=== PATIENT | male | born 1945 | race Caucasian/White ===

== ENCOUNTER 2020-03-19 08:29 | Observation (INO) | payer MEDICARE, MEDICAID ==
[~2020-03-19] VITALS: Ht 175.3 cm; Wt 53.7 kg
--- NOTE | 2020-03-19 08:41 | NUR ---
ORANGE JUICE GIVEN
--- NOTE | 2020-03-19 08:50 | ED Neurological Problem ---
General Chief Complaint: Neurological Problems Stated Complaint: POSSIBLE STROKE, FALL Nursing Triage Note: 0825 TO ED PER EMS FROM [facility] STAFF REPORTS THINKS HE MAY OF HAD A STROKE. HAVING SLURRED SPEECH AND REPORT WAS FOUND ON FLOOR LAST NIGHT WITH HIS W/C ON TOP OF HIM. ON EMS ARRIVAL FIND TO HAVE LOW BS STARTED IV AND D5 INFUSED. PATIENT ALERT AND TAKLING ON ARRIVAL TO ED WAS COVID POS ON FEB 17. PATIENT IS OLD CVA Nursing Sepsis Screen: No Definite Risk Source: patient, RN/MD, EMS, senior living records Exam Limitations: no limitations History of Present Illness Date Seen by Provider: Mar 19, 2020 Time Seen by Provider: 08:19 Initial Comments Patient presents ER by EMS from [facility] with chief complaint of altered mental status. Staff suspects that he had a stroke. He has had 2 falls in the last week. Last night he was found with his wheelchair on top of him and they picked him up and put him in bed. Patient was difficult to arouse this morning and had very slow slurred speech. He has a history of strokes. Is not on blood thinners. EMS states that his blood sugar was 22 when they arrived and they started a bag of D10 500 mL and he began to recover. Mother time he arrives he gives a history that he is not having any pain anywhere except for chronic pain in his knees. No cough fever shortness of air. He did have Covid diagnosed February 17 but he is long since symptom-free. 46-year pack history of smoking but not currently. He denies nausea chest pain diarrhea or constipation. EMS remarks he has been on oxygen since his diagnosis of Covid however his oxygen saturation was 98% on room air when they arrived. He does not chronically have a need for oxygen prior to that. Allergies and Home Medications Allergies Coded Allergies: NKANo Known Allergies (Verified Allergy, Unknown, 03/19/20) Home Medications Acetaminophen 325 Mg Capsule, 650 MG PO Q6H, (Reported) Ascorbic Acid 500 Mg Tablet, 500 MG PO DAILY, (Reported) Cholecalciferol (Vitamin D3) 1,250 Mcg Capsule, 5,000 UNITS PO DAILY, (Reported) Famotidine 20 Mg Tablet, 20 MG PO BID, (Reported) Finasteride 5 Mg Tablet, 5 MG PO DAILY, (Reported) Glimepiride 2 Mg Tablet, 2 MG PO DAILY, (Reported) Lisinopril 2.5 Mg Tablet, 2.5 MG PO DAILY, (Reported) Metformin HCl 500 Mg Tablet, 500 MG PO BID, (Reported) Potassium Chloride 10 Meq Tablet.er, 10 MEQ PO BID, (Reported) Simvastatin 20 Mg Tablet, 20 MG PO HS, (Reported) Terazosin HCl 2 Mg Capsule, 2 MG PO HS, (Reported) Zinc Amino Acid Chelate 50 Mg Tablet, 50 MG PO DAILY, (Reported) Patient Home Medication List Home Medication List Reviewed: Yes Review of Systems Review of Systems Constitutional: No chills, No diaphoresis Eyes: Denies Blindness, Denies Blurred Vision Ears, Nose, Mouth, Throat: denies ear pain, denies ear discharge Respiratory: No cough, No short of breath Cardiovascular: No chest pain, No palpitations Gastrointestinal: No abdominal pain, No constipation, No diarrhea Genitourinary: No discharge, No dysuria Musculoskeletal: see HPI; No back pain; joint pain All Other Systems Reviewed Negative Unless Noted: Yes Past Bmkugco-Ugrgqb-Ogxmbr Hx Patient Social History Alcohol Use: Denies Use Recreational Drug Use: No Smoking Status: Never a Smoker Recent Foreign Travel: No Contact w/Someone Who Travel: No Recent Infectious Disease Expo: No Recent Hopitalizations: No Past Medical History Surgeries: No Respiratory: No Cardiac: Yes Neurological: No Reproductive Disorders: No Gastrointestinal: No Musculoskeletal: Yes (wheelchair bound, uses walker for transfers) Endocrine: No Psychosocial: No Blood Disorders: No Physical Exam Vital Signs Vital Signs - First Documented 03/19/20 03/19/20 08:29 08:59 Pulse 93 Resp 18 B/P (MAP) 89/63 (72) Pulse Ox 94 O2 Delivery Room Air O2 Flow Rate 2.00 Capillary Refill : Less Than 3 Seconds Height, Weight, BMI Height: '" Weight: lbs. oz. kg; 23.00 BMI Method: General Appearance: no apparent distress, thin HEENT: PERRL/EOMI; No pharynx normal (Dry oral mucosa) Neck: full range of motion, supple, normal inspection Respiratory: lungs clear, no respiratory distress, no accessory muscle use (96% on room air nonlabored breathing), decreased breath sounds Gastrointestinal: normal bowel sounds, non tender Neurologic/Psychiatric: alert, normal mood/affect, oriented x 3 Crainal Nerves: normal hearing, normal speech, PERRL Motor/Sensory: no motor deficit, no sensory deficit Progress/Results/Core Measures Results/Orders Lab Results Laboratory Tests Test 03/19/20 08:15 03/19/20 08:40 03/19/20 08:42 03/19/20 10:43 Range/Units Urine Color YELLOW Urine Clarity CLEAR Urine pH 5.5 5-9 Urine Specific Godfrey >=1.030 1.016-1.022 Urine Protein TRACE H NEGATIVE Urine Glucose (UA) NEGATIVE NEGATIVE Urine Ketones 1+ H NEGATIVE Urine Nitrite NEGATIVE NEGATIVE Urine Bilirubin 1+ H NEGATIVE Urine Urobilinogen 1.0 < = 1.0 MG/DL Urine Leukocyte Esterase NEGATIVE NEGATIVE Urine RBC (Auto) NEGATIVE NEGATIVE Urine RBC NONE /HPF Urine WBC NONE /HPF Urine Crystals NONE /LPF Urine Bacteria NEGATIVE /HPF Urine Casts PRESENT /LPF Urine Hyaline Casts 2-5 H /LPF Urine Mucus NEGATIVE /LPF Urine Culture Indicated NO White Blood Count 13.9 H 4.3-11.0 10^3/uL Red Blood Count 5.32 4.30-5.52 10^6/uL Hemoglobin 14.9 13.3-17.7 g/dL Hematocrit 45 40-54 % Mean Corpuscular Volume 85 80-99 fL Mean Corpuscular Hemoglobin 28 25-34 pg Mean Corpuscular Hemoglobin Concent 33 32-36 g/dL Red Cell Distribution Width 15.9 H 10.0-14.5 % Platelet Count 414 H 130-400 10^3/uL Mean Platelet Volume 9.3 9.0-12.2 fL Immature Granulocyte % (Auto) 1 % Neutrophils (%) (Auto) 84 H 42-75 % Lymphocytes (%) (Auto) 8 L 12-44 % Monocytes (%) (Auto) 7 0-12 % Eosinophils (%) (Auto) 0 0-10 % Basophils (%) (Auto) 0 0-10 % Neutrophils # (Auto) 11.6 H 1.8-7.8 10^3/uL Lymphocytes # (Auto) 1.1 1.0-4.0 10^3/uL Monocytes # (Auto) 1.0 0.0-1.0 10^3/uL Eosinophils # (Auto) 0.0 0.0-0.3 10^3/uL Basophils # (Auto) 0.0 0.0-0.1 10^3/uL Immature Granulocyte # (Auto) 0.2 H 0.0-0.1 10^3/uL Sodium Level 130 L 135-145 MMOL/L Potassium Level 3.9 3.6-5.0 MMOL/L Chloride Level 94 L 98-107 MMOL/L Carbon Dioxide Level 20 L 21-32 MMOL/L Anion Gap 16 H 5-14 MMOL/L Blood Urea Nitrogen 34 H 7-18 MG/DL Creatinine 1.01 0.60-1.30 MG/DL Estimat Glomerular Filtration Rate > 60 BUN/Creatinine Ratio 34 Glucose Level 116 H 70-105 MG/DL Calcium Level 8.8 8.5-10.1 MG/DL Corrected Calcium 9.1 8.5-10.1 MG/DL Total Bilirubin 0.7 0.1-1.0 MG/DL Aspartate Amino Transf (AST/SGOT) 20 5-34 U/L Alanine Aminotransferase (ALT/SGPT) 20 0-55 U/L Alkaline Phosphatase 68 40-136 U/L Troponin I < 0.028 <0.028 NG/ML C-Reactive Protein High Sensitivity 2.78 H 0.00-0.50 MG/DL Total Protein 7.1 6.4-8.2 GM/DL Albumin 3.6 3.2-4.5 GM/DL Procalcitonin 0.17 H <0.10 NG/ML Glucometer 104 64 L 70-110 MG/DL My Orders Orders - JANEEN WEISS Ua Culture If Indicated (03/19/20 08:41) Cbc With Automated Diff (03/19/20 08:41) Comprehensive Metabolic Panel (03/19/20 08:41) Hs C Reactive Protein (03/19/20 08:41) Ct Head/Cervical Spine Wo (03/19/20 08:41) Chest 1 View, Ap/Pa Only (03/19/20 08:41) Straight Cath For Spec.-Adult (03/19/20 08:41) Accucheck Stat ONCE (03/19/20 08:41) Ekg Tracing (03/19/20 08:52) Troponin I (03/19/20 08:52) Accucheck Stat ONCE (03/19/20 09:28) D5 Ns 1000 Ml Iv Solution (Dextrose 5%/0 (03/19/20 10:45) Procalcitonin (Pct) (03/19/20 10:49) Vital Signs/I&O 03/19/20 03/19/20 03/19/20 08:29 08:59 09:52 Pulse 93 104 65 Resp 18 18 18 B/P (MAP) 89/63 (72) 118/84 (95) 128/88 (101) Pulse Ox 94 99 96 O2 Delivery Room Air Nasal Cannula Nasal Cannula O2 Flow Rate 2.00 2.00 Blood Pressure Mean: 72 Progress Progress Note #1: Time: 08:51 Progress Note Most of the 500 bag of D10 is in. His blood sugar is 104. Were going to feed him and evaluate blood urine and a chest x-ray. We will get a CT of his head and C-spine since he had a fall last night. Looking for source of his hypogly cemia. He is not having any chest pain however heart attacks can cause hypoglycemia so we will get an EKG and single troponin. Progress Note #2: Time: 10:42 Progress Note The patient's had no fever cough increased oxygen demand or evidence of pneumonia. He is recently getting over COVID-19 which is felt to be most likely for his x-ray findings. Plan to just observe this. He is feeling much better. Has been offered something to drink and were going to give him a small bolus of fluids. He did not want anything to eat. He had a small bowel movement and has a stage I pressure ulcer on his sacrum which was dressed with a padded dressing. He is bright, alert, cooperative and at baseline per staff. Initial ECG Impression Date: Mar 19, 2020 Initial ECG Impression Time: 09:09 Initial ECG Rate: 96 Initial ECG Rhythm: Normal Sinus Initial ECG Intervals: Normal Initial ECG Impression: Normal Initial ECG Comparisson: No Previous ECG Available Comment Normal sinus rhythm with quite a bit of tremor artifact and no clinically relevant ST changes. Diagnostic Imaging Diagonstic Imaging: Xray Plain Films/CT/US/NM/MRI: chest [facility] [place] [place] NAME: DANIELLE DESAI [facility] REC#: [id number] PT STATUS: REG ER : 1945 PHYSICIAN: JANEEN WEISS MD ADMIT DATE: 03/19/20/ER Draft Date of Exam:03/19/20 CHEST 1 VIEW, AP/PA ONLY Indication: Altered mental status with dyspnea. Comparison: None. Discussion: Single portable upright view of the chest was obtained. Normal heart size. Diffuse infiltrates are present bilaterally, greatest within the left lung base, concerning for pneumonia. No pleural fluid or pneumothorax. No osseous abnormality. Impression: 1. Extensive pulmonary infiltrates, greatest within the left lung base, concerning for pneumonia. Dictated on workstation # [id number] Dict: 03/19/20916 Trans: 03/19/[address] [facility] [id number] Interpreted by: CASSIDY FITZPATRICK MD Electronically signed by: Reviewed: Reviewed by Me Diagonstic Imaging: CT Plain Films/CT/US/NM/MRI: c-spine, head Comments [facility] [place] [place] NAME: DANIELLE DESAI REC#: [id number] PT STATUS: REG ER : 1945 PHYSICIAN: JANEEN WEISS MD ADMIT DATE: 03/19/20/ER Signed Date of Exam:03/19/20 CT HEAD/CERVICAL SPINE WO PROCEDURE: CT head and CT cervical spine without contrast. TECHNIQUE: Multiple contiguous axial images were obtained through the brain and cervical spine without the use of intravenous contrast. Sagittal and coronal reformations through the cervical spine were then performed. Auto Exposure Controls were utilized during the CT exam to meet ALARA standards for radiation dose reduction. INDICATION: Slurred speech CT HEAD: There is no mass, shift of the midline or hemorrhage to suggest an acute intracranial abnormality. There is no asymmetric hyperdense vessel identified either. The ventricles are not abnormally dilated and similar in size to the prior exam of 02/29/2008. The cortical atrophy and the cerebellar atrophy noted on the prior study are also again visualized and unchanged. The bone windows show no sign of a fracture or of a destructive lesion. The orbits are symmetrical and within normal limits. The sinuses are generally clear. IMPRESSION: 1. There is no evidence for an acute intracranial abnormality. 2. If clinical concern regarding an underlying abnormality persists, then MRI would be recommended for further study. CT CERVICAL SPINE: There are no prior studies for comparison. The reconstructed parasagittal images show fairly severe degenerative disc and bony disease at C6-C7 and C7-T1. There is narrowing of the disc spaces at these levels and an osteophyte formation involving the opposing endplates of C6-C7 and T1. The axial images through this region show no high-grade central stenosis however. There is no fracture or acute bony abnormality identified. There is no sign of retropharyngeal edema. The thyroid gland is generally unremarkable. The lung apices are clear. There are emphysematous changes involving both lungs. IMPRESSION: 1. There is no evidence for an acute bony abnormality. 2. There is degenerative disc and bony disease at C6-C7 and C7-T1 but there is no high-grade central stenosis at these levels. Dictated by: Dictated on workstation # [id number] Dict: 03/19/20 0934 Trans: 03/19/[address] [facility] [phone] Interpreted by: VEE WINKLER MD Electronically signed by: VEE WINKLER MD 03/19/20 1026 Reviewed: Reviewed by Me Departure Communication (Admissions) Time/Spoke to Admitting Phy: 10:45 Discussed the case with Dr. Mares. She will follow up procalcitonin. She agrees with the IV fluid selection. This is not a trauma related admission. It is for the hypoglycemia and dehydration. Impression Primary Impression: Hypoglycemia Additional Impressions: Dehydration Fall Qualified Codes: W19.XXXA - Unspecified fall, initial encounter Disposition: ADMITTED INPATIENT Condition: Stable Admissions Decision to Admit Reason: Admit from ER (General) Decision to Admit/Date: Mar 19, 2020 Time/Decision to Admit Time: 10:30 Departure-Patient Inst. Referrals: PURNIMA MOODY DO (PCP/Family) Primary Care Physician Copy Copies To 1: PURNIMA MOODY TITUS J Mar 19, 2020 08:50
[2020-03-19 08:51] LABS: BASOPHILS % (AUTO) 0 % (0-10); EOSINOPHILS % (AUTO) 0 % (0-10); HEMATOCRIT 45 % (40-54); HEMOGLOBIN 14.9 g/dL (13.3-17.7); LYMPHOCYTES # (AUTO) 1.1 10^3/uL (1.0-4.0); LYMPHOCYTES % (AUTO) 8 % (12-44); MEAN CORPUSCULAR HEMOGLOBIN 28 pg (25-34); MEAN CORPUSCULAR HGB CONC 33 g/dL (32-36); MEAN CORPUSCULAR VOLUME 85 fL (80-99); MEAN PLATELET VOLUME 9.3 fL (9.0-12.2); MONOCYTES % (AUTO) 7 % (0-12); NEUTROPHILS # (AUTO) 11.6 10^3/uL (1.8-7.8); NEUTROPHILS % (AUTO) 84 % (42-75); PLATELET COUNT 414 10^3/uL (130-400); WHITE BLOOD COUNT 13.9 10^3/uL (4.3-11.0)
[2020-03-19 09:04] LABS: CLARITY,URINE CLEAR; COLOR,URINE YELLOW; GLUCOSE, URINE (UA) NEGATIVE (NEGATIVE); KETONES,URINE 1+ (NEGATIVE); LEUKOCYTE ESTERASE ,URINE NEGATIVE (NEGATIVE); NITRITE,URINE NEGATIVE (NEGATIVE); PH,URINE 5.5 (5-9); PROTEIN,URINE TRACE (NEGATIVE)
[2020-03-19 09:14] LABS: BACTERIA,URINE NEGATIVE /HPF; BILIRUBIN,URINE 1+ (NEGATIVE)
[2020-03-19 09:14] LABS: ALBUMIN 3.6 GM/DL (3.2-4.5)
[2020-03-19 09:15] LABS: CHLORIDE 94 MMOL/L (98-107); POTASSIUM 3.9 MMOL/L (3.6-5.0); SODIUM 130 MMOL/L (135-145)
[2020-03-19 09:16] LABS: CALCIUM 8.8 MG/DL (8.5-10.1)
[2020-03-19 09:17] LABS: GLUCOSE 116 MG/DL (70-105); TOTAL PROTEIN 7.1 GM/DL (6.4-8.2)
[2020-03-19 09:18] LABS: CARBON DIOXIDE 20 MMOL/L (21-32)
[2020-03-19 09:19] LABS: BILIRUBIN,TOTAL 0.7 MG/DL (0.1-1.0)
[2020-03-19 09:20] LABS: ALKALINE PHOSPHATASE 68 U/L (40-136)
--- NOTE | 2020-03-19 09:20 | Diagnostic Imaging Report ---
Indication: Altered mental status with dyspnea. Comparison: None. Discussion: Single portable upright view of the chest was obtained. Normal heart size. Diffuse infiltrates are present bilaterally, greatest within the left lung base, concerning for pneumonia. No pleural fluid or pneumothorax. No osseous abnormality. Impression: 1. Extensive pulmonary infiltrates, greatest within the left lung base, concerning for pneumonia. Dictated by: Dictated on workstation # [id number]
[2020-03-19 09:21] LABS: CREATININE SERUM 1.01 MG/DL (0.60-1.30); GFR ESTIMATED > 60
[2020-03-19 09:22] LABS: BUN/CREATININE RATIO 34
[2020-03-19 09:23] LABS: ALANINE AMINOTRANSFERASE 20 U/L (0-55)
--- NOTE | 2020-03-19 09:45 | Diagnostic Imaging Report ---
PROCEDURE: CT head and CT cervical spine without contrast. TECHNIQUE: Multiple contiguous axial images were obtained through the brain and cervical spine without the use of intravenous contrast. Sagittal and coronal reformations through the cervical spine were then performed. Auto Exposure Controls were utilized during the CT exam to meet ALARA standards for radiation dose reduction. INDICATION: Slurred speech CT HEAD: There is no mass, shift of the midline or hemorrhage to suggest an acute intracranial abnormality. There is no asymmetric hyperdense vessel identified either. The ventricles are not abnormally dilated and similar in size to the prior exam of 02/29/2008. The cortical atrophy and the cerebellar atrophy noted on the prior study are also again visualized and unchanged. The bone windows show no sign of a fracture or of a destructive lesion. The orbits are symmetrical and within normal limits. The sinuses are generally clear. IMPRESSION: 1. There is no evidence for an acute intracranial abnormality. 2. If clinical concern regarding an underlying abnormality persists, then MRI would be recommended for further study. CT CERVICAL SPINE: There are no prior studies for comparison. The reconstructed parasagittal images show fairly severe degenerative disc and bony disease at C6-C7 and C7-T1. There is narrowing of the disc spaces at these levels and an osteophyte formation involving the opposing endplates of C6-C7 and T1. The axial images through this region show no high-grade central stenosis however. There is no fracture or acute bony abnormality identified. There is no sign of retropharyngeal edema. The thyroid gland is generally unremarkable. The lung apices are clear. There are emphysematous changes involving both lungs. IMPRESSION: 1. There is no evidence for an acute bony abnormality. 2. There is degenerative disc and bony disease at C6-C7 and C7-T1 but there is no high-grade central stenosis at these levels. Dictated by: Dictated on workstation # [id number]
[2020-03-19] MEDS ORDERED: D5 NS 1000 ML IV SOLUTION 1,000 ML IV SCH (10:45)
--- NOTE | 2020-03-19 11:02 | NUR ---
DR WEISS CALLED FOR BED
--- NOTE | 2020-03-19 11:07 | NUR ---
CALLED AND GAVE UPDATE TO NURSE AT [facility] THAT WE WILL BE KEEPING HIM
--- NOTE | 2020-03-19 11:14 | NUR ---
CALLED TO CHECK ON ROOM
--- NOTE | 2020-03-19 11:29 | NUR ---
USP MED LIST TO ADMIT CHART
--- NOTE | 2020-03-19 11:50 | NUR ---
DANIELLE DESAI admitted to room 408-1, with an admitting diagnosis of HYPOGLYCEMIA, on 03/19/20 from ED via [facility], accompanied by STAFF. DANIELLE DESAI introduced to surroundings, call light, bed controls, phone, TV, temperature control, lights, meal times, smoking policy, visitor policy, side rail policy, bathrooms and showers. Patient Rights given to patient in the handbook. DANIELLE DESAI verbalizes understanding that [facility] is not responsible for the loss or damage to any personal effects or valuables that are kept in the patients posession during their hospitalization. The following Patient Care Plans were discussed with the PT: Discharge Planning, PAIN, AND HYPOGLYCEMIA. DANIELLE DESAI verbalizes understanding of Interdisciplinary Patient Education. Patient and/or family were informed about the Rapid Response Team and its purpose.
[2020-03-19] MEDS ORDERED: ONDANSETRON 4 MG/2 ML (SDV) Z0FRAN IV PRN (12:15)
[2020-03-19] MEDS ORDERED: ACETAMINOPHEN 500 MG TAB (TYLENOL) PO PRN (12:15)
[2020-03-19 12:38] VITALS: BP 122/62
--- NOTE | 2020-03-19 12:53 | History & Physical-Hospitalist ---
History of Present Illness HPI/Chief Complaint patient is a 74-year-old male who presented to the emergency department from his [place] [facility] due to altered mental status. Apparently he fell last night and was found with his wheelchair on top of him but was able to get back into bed and slept the rest of the night. This morning he was difficult to arouse and had slurred speech. shelter was concerned that he had a stroke and sent him to the ER for evaluation. Upon EMS arrival his blood sugar was 22. He was given 500 mailbag of D10 and blood sugars improved to 116 on arrival. They then dropped to 65 despite significant oral intake orange juice. He is being admitted for observation of his blood sugar. He did have COVID at the end of January and has been out of isolation and doing well from that since. Source: patient Date Seen 03/19/20 Time Seen by a Provider: 12:50 Attending Physician Liyah Bashir MD PCP Ludwin Macedo DO Referring Physician Date of Admission Mar 19, 2020 at 10:50 Home Medications & Allergies Home Medications Reviewed patient Home Medication Reconciliation performed by pharmacy medication reconciliations hydro plant technician and/or nursing. Patients Allergies have been reviewed. Allergies Allergies Coded Allergies NKANo Known Allergies (Verified Allergy, Unknown, 03/19/20) Past Rykkfil-Btzrhn-Vhywop Hx Past Med/Social Hx: Reviewed Nursing Past Med/Soc Hx Patient Social History Employed/Student: retired Alcohol Use: Denies Use Recreational Drug Use: No Smoking Status: Never a Smoker Recent Foreign Travel: No Contact w/other who traveled: No Recent Hopitalizations: No Recent Infectious Disease Expo: No Past Medical History Reproductive: No History of Blood Disorders: No Family History Reviewed Nursing Family Hx Review of Systems Constitutional: No chills, No fever, No weakness EENTM: no symptoms reported Respiratory: No cough, No dyspnea on exertion, No short of breath Cardiovascular: no symptoms reported Gastrointestinal: No abdominal pain, No nausea, No vomiting Genitourinary: no symptoms reported Musculoskeletal: no symptoms reported Skin: no symptoms reported Psychiatric/Neurological: No Symptoms Reported Physical Exam Physical Exam Vital Signs Vital Signs - First Documented 03/19/20 03/19/20 03/19/20 08:29 08:59 12:00 Temp 36.3 Pulse 93 Resp 18 B/P (MAP) 89/63 (72) Pulse Ox 94 O2 Delivery Room Air O2 Flow Rate 2.00 Capillary Refill : Less Than 3 Seconds Height, Weight, BMI Height: '" Weight: lbs. oz. kg; 17.37 BMI Method: General Appearance: No Apparent Distress, Chronically ill, Thin HEENT: PERRL/EOMI, Moist Mucous Membranes Neck: Normal Inspection, Supple Respiratory: Lungs Clear, No Accessory Muscle Use, No Respiratory Distress Cardiovascular: Regular Rate, Rhythm, No Murmur Gastrointestinal: Normal Bowel Sounds, Non Tender, Soft Extremity: Normal Capillary Refill, No Calf Tenderness, No Pedal Edema Neurologic/Psychiatric: Alert, Oriented x3, Normal Mood/Affect Results Results/Procedures Labs Laboratory Tests 03/19/20 08:40 Patient resulted labs reviewed. Imaging: Reviewed Imaging Report Imaging [facility] [place] [place] NAME: DANIELLE DESAI [facility] REC#: [id number] PT STATUS: REG ER : 1945 PHYSICIAN: JANEEN WEISS MD ADMIT DATE: 03/19/20/ER Draft Date of Exam:03/19/20 CHEST 1 VIEW, AP/PA ONLY Indication: Altered mental status with dyspnea. Comparison: None. Discussion: Single portable upright view of the chest was obtained. Normal heart size. Diffuse infiltrates are present bilaterally, greatest within the left lung base, concerning for pneumonia. No pleural fluid or pneumothorax. No osseous abnormality. Impression: 1. Extensive pulmonary infiltrates, greatest within the left lung base, concerning for pneumonia. Dictated on workstation # [id number] Dict: 03/19/20916 Trans: 03/19/20918 [facility] [id number] Interpreted by: CASSIDY FITZPATRICK MD Electronically signed by: Assessment/Plan Admission Diagnosis Hypoglycemia Admission Status: Observation Assessment and Plan Hypoglycemia NIDDMI Hold home diabetic meds Continue D5NS with accuchecks BS 64 up from 22 Eating lunch when I was at bedside Pneumonia Post COVID Had COVID 1 month ago Not hypoxic and without fever Will start on Rocephin and Azithro due to elevated procal HLD HTN Resume home meds when able DVT ppx: SCDs Diagnosis/Problems Diagnosis/Problems (1) HLD (hyperlipidemia) (2) Essential (primary) hypertension (3) Non-insulin dependent type 2 diabetes mellitus (4) Hypoglycemia Status: Acute (5) Dehydration Status: Acute (6) Fall Status: Acute Qualifiers: Encounter type: initial encounter Qualified Codes: W19.XXXA - Unspecified fall, initial encounter (7) Pneumonia Qualifiers: Pneumonia type: due to unspecified organism Laterality: bilateral Lung location: unspecified part of lung Qualified Codes: J18.9 - Pneumonia, unspecified organism LIYAH BASHIR MD Mar 19, 2020 12:53
[2020-03-19] MEDS ORDERED: cefTRIAXone FOR IV USE 1,000 MG in WATER (STERILE) FOR INJECTION 10 ML IV ONE (13:45)
[2020-03-19] MEDS ORDERED: AZITHROMYCIN 250 MG TAB (ZITHROMAX) PO ONE (13:45)
[2020-03-19] MEDS: D5 NS 1000 ML IV SOLUTION 1,000 ML IV SCH ×2 (14:07→19:23)
[2020-03-19] MEDS ORDERED: ACET325C7 PO (14:35)
[2020-03-19] MEDS ORDERED: TERA2CAP4 PO (14:40)
[2020-03-19] MEDS ORDERED: ZINC50TA51 PO (14:40)
[2020-03-19] MEDS ORDERED: LISI2.5T PO (14:40)
[2020-03-19] MEDS ORDERED: METF-397 PO (14:40)
[2020-03-19] MEDS ORDERED: POTA10TA6 PO (14:40)
[2020-03-19] MEDS ORDERED: GLIM2TAB4 PO (14:40)
[2020-03-19] MEDS ORDERED: ASCO500T7 PO (14:44)
[2020-03-19] MEDS ORDERED: SIMV20TA26 PO (14:44)
[2020-03-19] MEDS ORDERED: CHOL500049 PO (14:44)
[2020-03-19] MEDS ORDERED: FINA5TAB6 PO (14:44)
[2020-03-19] MEDS ORDERED: FAMO20TA3 PO (14:45)
[2020-03-19 16:00] VITALS: BP 105/57
[2020-03-19] MEDS: inSUlin ASPART (NovoLOG) 1 UNIT/0.01 ML (CHARGE PER UNIT) SC SCH ×2 (16:17→20:01)
[2020-03-19 20:00] VITALS: BP 114/56
[2020-03-19 23:43] VITALS: BP 108/54
[2020-03-20] MEDS: D5 NS 1000 ML IV SOLUTION 1,000 ML IV SCH ×2 (04:04→13:19)
[2020-03-20 04:05] VITALS: BP 110/58
[2020-03-20 05:18] LABS: BASOPHILS % (AUTO) 0 % (0-10); EOSINOPHILS # (AUTO) 0.2 10^3/uL (0.0-0.3); EOSINOPHILS % (AUTO) 2 % (0-10); HEMATOCRIT 38 % (40-54); HEMOGLOBIN 12.6 g/dL (13.3-17.7); LYMPHOCYTES # (AUTO) 1.2 10^3/uL (1.0-4.0); LYMPHOCYTES % (AUTO) 14 % (12-44); MEAN CORPUSCULAR HEMOGLOBIN 28 pg (25-34); MEAN CORPUSCULAR HGB CONC 33 g/dL (32-36); MEAN CORPUSCULAR VOLUME 85 fL (80-99); MEAN PLATELET VOLUME 9.3 fL (9.0-12.2); MONOCYTES # (AUTO) 0.7 10^3/uL (0.0-1.0); MONOCYTES % (AUTO) 8 % (0-12); NEUTROPHILS # (AUTO) 6.3 10^3/uL (1.8-7.8); NEUTROPHILS % (AUTO) 74 % (42-75); PLATELET COUNT 293 10^3/uL (130-400); WHITE BLOOD COUNT 8.5 10^3/uL (4.3-11.0)
[2020-03-20 05:51] LABS: ALANINE AMINOTRANSFERASE 15 U/L (0-55); ALBUMIN 2.7 GM/DL (3.2-4.5); ALKALINE PHOSPHATASE 55 U/L (40-136); BILIRUBIN,TOTAL 0.6 MG/DL (0.1-1.0); BUN/CREATININE RATIO 23; CALCIUM 7.7 MG/DL (8.5-10.1); CARBON DIOXIDE 21 MMOL/L (21-32); CHLORIDE 102 MMOL/L (98-107); CREATININE SERUM 0.74 MG/DL (0.60-1.30); GFR ESTIMATED > 60; GLUCOSE 86 MG/DL (70-105); POTASSIUM 3.6 MMOL/L (3.6-5.0); SODIUM 132 MMOL/L (135-145); TOTAL PROTEIN 5.4 GM/DL (6.4-8.2)
[2020-03-20 08:00] VITALS: BP 102/53
--- NOTE | 2020-03-20 08:21 | Diagnostic Imaging Report ---
Indication: Dehydration and hypoglycemia. Time of exam: 6:48 AM Correlation is made with prior chest one day earlier. Heart size is stable. There are interstitial infiltrates throughout the right lung as well as left base. There appears to be a small amount of pleural fluid on the left. No pneumothorax is seen. IMPRESSION: Bilateral infiltrates, greatest in the right lung and a similar examination from one day earlier. Dictated by: Dictated on workstation # [id number]
[2020-03-20] MEDS ORDERED: AZITHROMYCIN 250 MG TAB (ZITHROMAX) PO SCH (09:00)
[2020-03-20] MEDS ORDERED: CEFD300C3 PO (11:17)
[2020-03-20] MEDS ORDERED: CEFDINIR 300 MG (OMNICEF) CAP PO ONE (11:30)
[2020-03-20 12:23] VITALS: BP 108/50
--- NOTE | 2020-03-20 13:57 | NUR ---
RD ASSESSMENT PMHx: DM; HLD; HTN; PT INTERACTION: Pt was awake and pleasant during nutrition assessment. Note pt has AMS, and was difficult to understand during assessment. Pt states current appetite is pretty good. Note avg PO intake 40% x2meal, per chart review. Pt states following a regular diet at home, and has no issues with chewing/swallowing food. Note pt has dentures and they moved around a lot in his mouth, making him difficult to understand. Pt states no recent issues with nausea, vomiting, constipation, or diarrhea. Note last BM was 03/20 and pt not currently on bowel regimen per chart review. Pt states unsure of recent wt changes. Note unable to determine recent wt hx, per chart review. Pt states current DM management is good, and that his blood glucose levels have been "a little low." Note unable to determine recent HbA1c, per chart review. ABNORMAL NUTRITION-RELATED LAB VALUES LOW: Na 132; Ca 7.7; Pro 5.4; alb 2.7 HIGH: Est. kcal needs: 0525-6906 kcal | 30-35 kcal/kg Est. Pro needs: 54-65 g Pro | 1.0-1.2 g Pro/kg PES STATEMENT: Inadequate oral intake (NI-2.1) related to loss of appetite and confusion, as evidenced by pt interview, and avg PO intake 40% x2meal. INTERVENTION: Continue with current diet order of Regular diet. Pt may benefit from consistent CHO diet d/t pt having hx of DM. Add Glucerna to meals TID, for increased kcal intake. Provides 220 kcal and 10 g Pro per serving. Did not offer diet education on DM management d/t pt's AMS. Will continue to follow and reassess as pt needs, intake, and status change. Catalina HAWK, MS RD LD [phone] cell
[2020-03-20 18:06] VITALS: BP 108/50
== END 2020-03-20 18:06 ==
LOC: EDUNIT# 08:29 → ER 08:31 → UNDOADMOB 10:50 → 4TH 10:50 → UNDODISOB 03-20 18:07
PROVIDERS: ADMIT Family Medicine; ATTEND Internal Medicine
DX: E11.649 Type 2 diabetes mellitus with hypoglycemia without coma (principal); E86.0 Dehydration; E78.5 Hyperlipidemia, unspecified; I10 Essential (primary) hypertension; J18.9 Pneumonia, unspecified organism; Z79.84 Long term (current) use of oral hypoglycemic drugs; Z79.899 Other long term (current) drug therapy; Z86.73 Personal history of transient ischemic attack (TIA), and cerebral infarction without residual deficits; W19.XXXA Unspecified fall, initial encounter
CPT/HCPCS: 51701; 70450; 71045 ×2; 72125; 80053 ×2; 81000; 82962 ×2; 84145; 84484; 85025 ×2; 86141; 93005; 99284; G0378; 36415